=== PATIENT | male | born 1955 | race Caucasian/White ===

== ENCOUNTER 2018-08-09 19:35 | Observation (INO) ==
--- NOTE | 2018-08-09 19:42 | Emergency Department Note ---
Disposition Clinical Impression: Chest pain Qualifiers: Chest pain type: unspecified Qualified Code(s): R07.9 - Chest pain, unspecified Disposition: Admitted As Inpatient Condition: Fair Referrals: Tony French MD [Primary Care Provider] - Forms: ED Satisfaction Letter Time of Disposition: 21:18 Chest Pain HPI - General Chief Complaint: ED Chest Pain Stated Complaint: chest pain Time Seen by Provider: 08/09/18 19:41 Source: patient, EMS Mode of arrival: EMS Limitations: no limitations Vital Signs Reviewed: Yes Nursing Notes Reviewed: Yes - History of Present Illness HPI Narrative: Patient is a 62-year-old male with past medical history of A. fib, [place], stent placement 1, bilateral spontaneous pneumothoraces in the past. He presents today due to right-sided chest discomfort and right upper quadrant pain. He does note that he has had a cholecystectomy in the past. He states that just prior to arrival, he was at [facility] walking around. He started to have some aching/cramping in his right chest and right upper quadrant region. He became short of breath. He had to stop walking because of the pain being so intense. Described as a strong ache or cramping sensation. He states that it radiated to his left chest. Denies any other cough, productive sputum, fevers, nausea, vomiting, diarrhea, sweating. He was given aspirin 325 by squad. No nitroglycerin given in route. - Related Data Allergies Allergy/AdvReac Type Severity Reaction Status Date / Time No Known Allergies Allergy Verified 08/09/18 19:45 All systems ED: reviewed and negative except as stated. Constitutional: Denies: fever Cardiovascular: Reports: chest pain Respiratory: Reports: dyspnea. Denies: cough, wheezes, sputum production Gastrointestinal: Reports: abdominal pain. Denies: nausea, vomiting, diarrhea, constipation Genitourinary: Denies: urgency, dysuria Neurological: Denies: headache, weakness, numbness Chest Pain PMH - Past Medical History Medical history: Reports: atrial fibrillation, hypertension, myocardial infarction Psychiatric history: Reports: anxiety, panic disorder, PTSD - Social History Smoking Status: Never smoker Alcohol use: Reports: none Drug use: Reports: none Physical Exam - General Limitations: no limitations General appearance: alert, in no apparent distress - Head Head exam: atraumatic, normocephalic, normal inspection - Eye Eye exam: Present: normal appearance, PERRL, EOMI - ENT ENT exam: normal exam, normal oropharynx, mucous membranes moist - Neck Neck exam: Present: normal inspection, full ROM, trachea midline - Chest Chest inspection: Present: normal inspection, symmetric chest wall rise. Absent : tenderness, rash - Respiratory Respiratory exam: Present: normal lung sounds bilaterally. Absent: respiratory distress, wheezes - Cardiovascular Cardiovascular exam: Present: regular rate, normal rhythm, normal heart sounds - Abdominal Exam Abdominal exam: Present: soft, tenderness (LUQ, RUQ, epigastric - mild). Absent : distention, guarding, rebound, rigidity - Extremities Exam Extremities exam: Present: normal inspection, full ROM. Absent: tenderness, pedal edema - Neurological Exam Neurological exam: Present: alert, oriented X3 - Psychiatric Psychiatric exam: Present: normal affect, normal mood - Skin Skin exam: Present: warm, dry, intact, normal color. Absent: rash Course Course Narrative: Patient was mildly hypertensive on presentation. Otherwise, the rest of vitals within normal limits. Physical exam showed heart regular rate and rhythm, lungs clear to auscultation, no reproducible chest discomfort on exam, no rashes. Abdominal exam shows mild left and right upper quadrant tenderness, mild epigastric tenderness. Non-peritoneal. Soft. We will perform cardiac workup, EKG, chest x-ray, troponin. Patient has significant cardiac history, heart score elevated. She will need admission for chest pain workup even if workup is negative here. 21:17 EKG showed no sinus rhythm with no acute ST changes. Troponin negative. Chest x-ray negative for any acute cardiopulmonary process. She was given aspirin 325 mg. Patient has refused nitroglycerin at this time. We discussed results with the patient he was agreeable with staying after a long discussion as to why he needed to stay. At first, patient wanted to leave AGAINST MEDICAL ADVICE but after a very long discussion with both myself and Dr. Miranda, he was agreeable with staying for further care and evaluation. Vital Signs Temperature 98.4 F 08/09/18 19:41 Pulse Rate 60 08/09/18 19:41 Respiratory Rate 14 08/09/18 19:41 Blood Pressure 148/82 08/09/18 19:41 O2 Sat by Pulse Oximetry 98 08/09/18 19:41 Temperature 98.4 F 08/09/18 19:41 Pulse Rate 60 08/09/18 19:41 Respiratory Rate 14 08/09/18 19:41 Blood Pressure 148/82 08/09/18 19:41 O2 Sat by Pulse Oximetry 97 08/09/18 19:59 Oxygen Delivery Oxygen Delivery Room Air Chest Pain - MDM Narrative Medical decision making narrative: Patient was mildly hypertensive on presentation. Otherwise, the rest of vitals within normal limits. Physical exam showed heart regular rate and rhythm, lungs clear to auscultation, no reproducible chest discomfort on exam, no rashes. Abdominal exam shows mild left and right upper quadrant tenderness, mild epigastric tenderness. Non-peritoneal. Soft. We will perform cardiac workup, EKG, chest x-ray, troponin. Patient has significant cardiac history, heart score elevated. She will need admission for chest pain workup even if workup is negative here. 21:17 EKG showed no sinus rhythm with no acute ST changes. Troponin negative. Chest x-ray negative for any acute cardiopulmonary process. She was given aspirin 325 mg. Patient has refused nitroglycerin at this time. We discussed results with the patient he was agreeable with staying after a long discussion as to why he needed to stay. At first, patient wanted to leave AGAINST MEDICAL ADVICE but after a very long discussion with both myself and Dr. Miranda, he was agreeable with staying for further care and evaluation. - Medical Records Medical records reviewed: Yes I reviewed the patient's medical records. - Lab Data Lab results reviewed: Yes I reviewed the patient's lab results. Result diagrams: 08/09/18 19:51 08/09/18 19:51 Lab Results 08/09/18 08/09/18 08/09/18 Range/Units 19:41 19:51 19:51 WBC 8.0 (4.3-11.1) K/mcL RBC 4.55 (4.19-5.50) M/mcL Hgb 12.7 L (12.9-16.9) g/dL Hct 38.6 (37.5-50.1) % MCV 84.8 (83.0-100.0) fL MCH 27.9 L (28.0-33.3) pg MCHC 32.9 (31.6-35.5) g/dL RDW 14.2 (11.5-14.5) % Plt Count 160 (140-400) K/mcL MPV 9.3 L (9.4-12.4) fL Immature Gran % 0.4 (0-4) % Seg Neutrophils % 57.6 % Lymphocytes % 27.3 % Monocytes % 9.2 % Eosinophils % 4.9 % Basophils % 0.6 % Neutrophils # 4.6 (1.6-8.9) K/mcL Lymphocytes # 2.2 (0.6-4.6) K/mcL Monocytes # 0.7 (0.0-1.3) K/mcL Eosinophils # 0.4 (0.0-0.6) K/mcL Basophils # 0.1 (0.0-0.2) K/mcL PT 12.0 (9.4-12.1) Seconds INR 1.1 APTT 33.9 (26.0-36.0) Seconds Sodium 138 (136-145) mEq/L Potassium 3.6 (3.5-5.1) mEq/L Chloride 102 (98-107) mEq/L Carbon Dioxide 31 H (23-29) mEq/L BUN 16 (8-23) mg/dL Creatinine 0.60 L (0.70-1.30) mg/dL Est GFR ( Amer) > 60 (> 60) Est GFR (Non-Af Amer) > 60 (> 60) BUN/Creatinine Ratio 27 H (6-26) Glucose 86 (70-105) mg/dL Calculated Osmolality 286 (280-300) Calcium 9.4 (8.6-10.3) mg/dL Troponin I < 0.03 (< 0.04) ng/mL - Radiology Data Radiology results reviewed: Yes I reviewed the patient's radiology results. - EKG Data EKG attestation: Yes I reviewed and interpreted this EKG. EKG results narrative: 08/09/2018 and 19:46. Normal sinus rhythm. Heart rate 62. MO 173. QRS 111. QTC 424. Normal axis. No acute ST elevation or depression. Partial bundle branch block in lead 2, 3, aVF that is present on old EKG. Heart Score - Score History: Moderately Suspicious EKG: Normal Age: Greater than 65 Risk Factors: Equal/Greater than 3 risk factor or history of atherosclerotic disease Troponin: Less than normal limit HEART Score Total: 5 S.B.A.R. - S.B.A.R. Situation: Demographics, MOA Background: Presenting Complaint, Relevant PMH, Meds, & Allergies Assessment: Vital Signs, Course and respsone to treatment, Exam Concerns, Patient/Family Expectation, Pertinant Lab Results Recommendation: Barrier(s) to disposition, Recommendation based on pending studies, treatments, or consults S.B.A.R. Report Given to: Dr. Rg Attestation Statement - Attestation Attestation: I, Jay Miranda, examined this patient and my medical decision-making was reviewed with the NATURAL RESOURCE MANAGER/PA/Advanced Practice Nurse/Resident Physician. I agree with the documented findings, disposition and treatment plan as described except to the extent set forth below. 62-year-old male presents to the emergency Department with concerns of right lower chest pain. Patient states symptoms started acutely while walking in [employer]. He became short of breath and diaphoretic with this pain. The pain was described as a sharp aching in his right lower chest that did not radiate. He denied fever, chills, nausea, vomiting, diarrhea. Patient has a history of coronary artery disease with a stent in the left circumflex artery. EKG showed normal sinus rhythm with a rate of 62 without evidence of STEMI or dysrhythmia. Repeat EKG with repeat symptoms did not show evidence of STEMI and had a normal sinus rhythm. Initial troponin negative. Patient will be admitted to the hospitalist for further care and evaluation. He received 324 mg of aspirin at PCPs office prior to arrival.
[2018-08-09] MEDS ORDERED: Nitroglycerin 0.4 MG TAB.SUBL SL PRN (19:55)
[2018-08-09 20:15] LABS: Basophils # 0.1 K/mcL (0.0-0.2); Basophils % 0.6 %; Eosinophils # 0.4 K/mcL (0.0-0.6); Eosinophils % 4.9 %; Hematocrit 38.6 % (37.5-50.1); Hemoglobin 12.7 g/dL (12.9-16.9); Immature Granulocytes % 0.4 % (0-4); Lymphocytes # 2.2 K/mcL (0.6-4.6); Lymphocytes % 27.3 %; Mean Corpuscular HGB Conc 32.9 g/dL (31.6-35.5); Mean Corpuscular Hemoglobin 27.9 pg (28.0-33.3); Mean Corpuscular Volume 84.8 fL (83.0-100.0); Mean Platelet Volume 9.3 fL (9.4-12.4); Monocytes # 0.7 K/mcL (0.0-1.3); Monocytes % 9.2 %; Neutrophils # 4.6 K/mcL (1.6-8.9); Platelet Count 160 K/mcL (140-400); Red Blood Count 4.55 M/mcL (4.19-5.50); Red Cell Distribution Width 14.2 % (11.5-14.5); Segmented Neutrophils % 57.6 %
[2018-08-09 20:22] LABS: INR 1.1
[2018-08-09 20:24] LABS: Activated Partial Thrombo Time 33.9 Seconds (26.0-36.0)
[2018-08-09 20:41] LABS: BUN/Creatinine Ratio 27 (6-26); Blood Urea Nitrogen 16 mg/dL (8-23); Calcium 9.4 mg/dL (8.6-10.3); Carbon Dioxide 31 mEq/L (23-29); Chloride 102 mEq/L (98-107); Glucose 86 mg/dL (70-105); Osmolality,Calculated 286 (280-300); Potassium 3.6 mEq/L (3.5-5.1); Sodium 138 mEq/L (136-145); eGFR For Non-African Americans > 60 (> 60)
[2018-08-09 20:43] LABS: Troponin I < 0.03 ng/mL (< 0.04)
[2018-08-09 22:54] LABS: Bilirubin,Urine Negative (Negative); Blood,Urine Negative (Negative); Clarity,Urine Clear (Clear); Color,Urine Yellow (Yellow); Glucose,Urine (UA) Normal (Normal); Ketones,Urine Negative (Negative); Leukocyte Esterase,Urine Negative (Negative); Nitrite,Urine Negative (Negative); Protein,Urine Negative (Neg-Trace); Specific Gravity,Urine 1.012 (1.010-1.025); Urobilinogen,Urine Normal (Normal)
[2018-08-09 23:44] VITALS: BP 154/93
--- NOTE | 2018-08-10 06:11 | Event Note ---
Date of Encounter: 08/10/18 Time of Encounter: 06:09 Called to see patient as he was threatening to leave against medical advice (AMA ). I came to the nursing unit as quickly as I could. He was walking out of the unit as I arrived. I tried to talk to him, but he refused, and continued to leave the premises and left AMA.
--- NOTE | 2018-08-14 11:48 | Electrocardiograph Report ---
[place] [id number] Test Date: 2018-08-09 Pat Name: Jay Cavazos Department: 4501 Room: [facility] Gender: M Direct Service Provider: [id number] : 1955 Requested By: Payam Rg Order Number: [id number] Reading MD: Nando Jean Measurements Intervals [place] Rate: 68 P: 43 [place]: 164 QRS: 53 QRSD: 102 T: 52 QT: 402 QTc: 419 Interpretive Statements SINUS RHYTHM WITH OCCASIONAL SUPRAVENTRICULAR PREMATURE COMPLEXES Electronically Signed On 08-14-2018 11:46:26 EDT by Nando Jean
--- NOTE | 2018-08-14 11:58 | Electrocardiograph Report ---
[address] [address] Test Date: 2018-08-09 Pat Name: Jay Cavazos Department: [id number] Room: 3B Gender: M Snap Attacher: : 1955 Requested By: Tony Cole Order Number: [id number] Reading MD: Nando Jean Measurements Intervals [place] Rate: 62 P: 53 DC: 173 QRS: 74 QRSD: 111 T: 57 QT: 417 QTc: 424 Interpretive Statements Sinus rhythm Electronically Signed On 08-14-2018 11:56:32 EDT by Nando Jean
== END 2018-08-10 06:05 | disposition left against medical advice (07) ==
LOC: EMEROOARM 19:35 → 3BNU 19:35
PROVIDERS: ADMIT Pediatrics; ATTEND Pediatrics